=== PATIENT | female | born 1960 | race Caucasian/White ===

== ENCOUNTER 2016-06-21 10:11 | Emergency (ER) | payer BC ==
[2016-06-21] MEDS ORDERED: Adacel Vial IM ONE ×2 (10:35→10:36)
--- NOTE | 2016-06-21 10:42 | ERPHSYRPT ---
- History of Present Illness Time Seen by Provider: 06/21/16 10:20 Source: patient Exam Limitations: no limitations Patient Subjective Stated Complaint: lt knee laceration Triage Nursing Assessment: fell carrying wood this morning--approx 3.5 cm u- shaped laceration to dorsal lt knee. bleeding controlled. bruising noted to dorsal lt knee. no other injury. pedal pulse present Occurred: just prior to arrival Reason for Fall: tripped Injuries/Pain Location: lower extremity (left knee) Loss of Consciousness: no loss of consciousness Quality: aching Allergies/Adverse Reactions: ibuprofen Allergy (Severe, Verified 06/21/16 10:27) hives NSAIDS (Non-Steroidal Anti-Inflamma Allergy (Intermediate, Verified 06/21/16 10: 27) Difficulty Breathing acetaminophen [From Darvocet-N 100] Allergy (Mild, Unverified 06/21/16 10:27) Hives meperidine HCl [From Demerol] Allergy (Mild, Verified 06/21/16 10:27) Itching morphine Allergy (Mild, Verified 06/21/16 10:27) Itching propoxyphene napsylate [From Darvocet-N 100] Allergy (Mild, Verified 06/21/16 10 :27) Hives Sulfa (Sulfonamide Antibiotics) [Sulfa(Sulfonamide Antibiotics)] Adverse Reaction (Mild, Verified 06/21/16 10:27) Stomach Pain Home Medications: Hydrocodone/APAP 10/325 mg [[employer] 10/325 MG Tablet] 1 tab PO QID PRN PRN 04/02/15 [History] Citalopram Hydrobromide 20 mg* [ceLEXa 20 MG] 10 mg PO DAILY 06/21/16 [ History] Hx Tetanus, Diphtheria Vaccination/Date Given: No Hx Influenza Vaccination/Date Given: Yes Hx Pneumococcal Vaccination/Date Given: Yes Immunizations Up to Date: No - Review of Systems Constitutional: No Symptoms Eyes: No Symptoms Ears, Nose, & Throat: No Symptoms Respiratory: No Symptoms Cardiac: No Symptoms Abdominal/Gastrointestinal: No Symptoms Musculoskeletal: Fall, Joint Pain (left knee) Neurological: No Symptoms Psychological: No Symptoms Endocrine: No Symptoms Hematologic/Lymphatic: No Symptoms Immunological/Allergic: No Symptoms - Past Medical History Pertinent Past Medical History: Yes Neurological History: Migraines ENT History: No Pertinent History Cardiac History: No Pertinent History Respiratory History: No Pertinent History Endocrine Medical History: No Pertinent History Musculoskeletal History: Arthritis, Degenerative Disk Disease, Osteoarthritis, Other GI Medical History: No Pertinent History History: Other Psycho-Social History: Anxiety Female Reproductive Disorders: Abnormal Uterine Bleeding Other Medical History: Kidney stone disease. UTI. kidney stent - Past Surgical History Past Surgical History: Yes Neuro Surgical History: No Pertinent History Cardiac: No Pertinent History Respiratory: No Pertinent History Gastrointestinal: Appendectomy Genitourinary: No Pertinent History Musculoskeletal: Orthopedic Surgery Female Surgical History: Hysterectomy Other Surgical History: back surgery - vein removal-ureter stents placed - Social History Smoking Status: Never smoker How long have you smoked: 22 years Exposure to second hand smoke: No Drug Use: none Patient Lives Alone: No - Female History Hx Now: No - Nursing Vital Signs Nursing Vital Signs: Initial Vital Signs Temperature 98.3 F Temperature Source Oral Pulse Rate 83 Respiratory Rate 18 Blood Pressure 129/73 Pain Intensity 8 - Physical Exam General Appearance: moderate distress Head Injury: no evidence of injury Eye Exam: PERRL/EOMI, eyes nml inspection ENT Exam: airway nml Neck Exam: supple, trachea midline, full range of motion Respiratory/Chest Exam: normal breath sounds Cardiovascular Exam: normal heart sounds, regular rate/rhythm Gastrointestinal Exam: soft, normal bowel sounds Back Exam: normal inspection, normal range of motion Extremity Exam: normal range of motion, capillary refill <3 sec, pelvis stable, lacerations (5 cm elliptical to left knee) Neurologic Exam: alert, oriented x 3, cooperative, normal mood/affect, nml cerebellar function Skin Exam: normal color, warm, dry, laceration SpO2 Interpretation: normal SpO2: 99 Oxygen Delivery: Room Air Procedures - Laceration/Wound Repair Knee Wound Location: Left, upper leg Wound Length (cm): 5 Wound's Depth, Shape: superficial, contused tissue Wound Explored: clean Hibiclens Prep: Yes Anesthesia: local, 2% Lidocaine Volume Anesthetic (ccs): 6 Wound Debrided: minimal Wound Repaired With: [place] Number of Sutures: 11 Layer Closure?: No Sterile Dressing Applied?: Yes Splint Applied?: Yes Type of Splint Applied: Knee immobilizer Sling Applied?: No - Radiology Exams Knee X-ray Interpretation: Interpreted by me, Negative Ordered Tests: Active Orders 24 hr Category Date Time Status Splint STAT Care 06/21/16 11:16 Active Wound Care STAT Care 06/21/16 11:15 Active KNEE (3 VIEWS) Stat Exams 06/21/16 10:35 Taken Medication Summary Discontinued Medications Generic Name Dose Route Start Last Admin Trade Name Zina PRN Reason Stop Dose Admin Bacitracin 0.9 gm 06/21/16 11:15 06/21/16 11:19 Baciguent Packet TP 06/21/16 11:16 0.9 gm STAT ONE Administration Diphtheria/Tetanus/Acell Pertussis 0.5 ml 06/21/16 10:35 06/21/16 10:37 Adacel Vial IM 06/21/16 10:36 0.5 ml .ONCE ONE Administration Diphtheria/Tetanus/Acell Pertussis Confirm 06/21/16 10:36 Adacel Vial Administered 06/21/16 10:37 Dose 0.5 ml IM .STK-MED ONE Lidocaine HCl 8 ml 06/21/16 11:15 06/21/16 11:19 Xylocaine 2% Hcl 20 Ml Mdv IJ 06/21/16 11:16 8 ml STAT ONE Administration - Progress Progress: improved Counseled pt/family regarding: need for follow-up ([place] removal 12 days) - Departure Time of Disposition: 11:15 Departure Disposition: Home Clinical Impression: Contusion of left knee, initial encounter Qualifiers: Encounter type: initial encounter Qualified Code(s): S80.02XA - Contusion of left knee, initial encounter Laceration of knee Qualifiers: Encounter type: initial encounter Laterality: left Qualified Code(s): S81.012A - Laceration without foreign body, left knee, initial encounter Condition: Stable Critical Care Time: No Referrals: GIANNA BORJAS [Primary Care Provider] - Instructions: Care for a Laceration After Repair, Laceration Repair -- [place] Additional Instructions: [place] removal by your doctor 12 days
[2016-06-21] MEDS ORDERED: BACIGUENT PACKET TP ONE (11:15)
[2016-06-21] MEDS ORDERED: XYLOCAINE 2% HCL 20 ML MDV IJ ONE (11:15)
[2016-06-21] MEDS ORDERED: BACIGUENT PACKET ONE (11:18)
[2016-06-21] MEDS ORDERED: XYLOCAINE 2% HCL 20 ML MDV ONE (11:18)
[2016-06-21 11:36] VITALS: BP 112/58; PULSE 74; O2SAT 97
--- NOTE | 2016-06-21 20:33 | XRAY ---
Indication: Pain and laceration following fall. Comparison: None 3 views of the left knee demonstrates small anterior laceration. No other bony, articular, or soft tissue abnormalities.
== END 2016-06-21 11:30 | disposition home or self-care (01) ==
LOC: ED 10:11
PROC: 0HQLXZZ Repair Left Lower Leg Skin, External Approach (ICD-10-PCS; principal; 2016-06-21)
DX: S80.02XA Contusion of left knee, initial encounter (principal); S81.012A Laceration without foreign body, left knee, initial encounter; W01.0XXA Fall on same level from slipping, tripping and stumbling without subsequent striking against object, initial encounter; Z23 Encounter for immunization; A35 Other tetanus
CPT/HCPCS: 12002; 73562; 90715; 99283; L1830

== ENCOUNTER 2016-10-10 15:20 | Emergency (ER) | payer BC ==
[2016-10-10] MEDS ORDERED: BENADRYL 50 MG/ML IV ONE (15:26)
[2016-10-10] MEDS ORDERED: Ativan 2 MG/1 ML VIAL IV ONE (15:26)
[2016-10-10] MEDS ORDERED: Sodium Chloride 0.9% 1000 ML 0 ML ONE (15:30)
[2016-10-10] MEDS ORDERED: BENADRYL 50 MG/ML ONE ×2 (15:30→15:32)
[2016-10-10] MEDS ORDERED: Ativan 2 MG/1 ML VIAL ONE ×2 (15:30→15:32)
[2016-10-10] MEDS ORDERED: Sodium Chloride 0.9% 1000 ML 1,000 ML IV SCH (15:30)
[2016-10-10] MEDS ORDERED: Sodium Chloride 0.9% 1000 ML 1,000 ML ONE (15:32)
--- NOTE | 2016-10-10 16:18 | ERPHSYRPT ---
- History of Present Illness Time Seen by Provider: 10/10/16 16:14 Source: patient, EMS Exam Limitations: no limitations Patient Subjective Stated Complaint: PT STATES SHE DRANK AN ENERGY DRINK AT WORK AND AN HOUR LATER BEGAN FEELING BAD AND ITCHING. Triage Nursing Assessment: PT PINK, WARM, DRY. PT SHAKING. PT AFEBRILE. Physician History: 56-year-old female came to the emergency room up that having the allergic reaction with energy drinks. She was having a severe muscle spasm and rash all over the body. She has never experienced this type of symptoms before. She relates this to the energy drink. Timing/Duration: today Associated Symptoms: malaise Allergies/Adverse Reactions: ibuprofen Allergy (Severe, Verified 10/10/16 15:26) hives NSAIDS (Non-Steroidal Anti-Inflamma Allergy (Intermediate, Verified 10/10/16 15: 26) Difficulty Breathing acetaminophen [From Darvocet-N 100] Allergy (Mild, Unverified 10/10/16 15:26) Hives meperidine HCl [From Demerol] Allergy (Mild, Verified 10/10/16 15:26) Itching morphine Allergy (Mild, Verified 10/10/16 15:26) Itching propoxyphene napsylate [From Darvocet-N 100] Allergy (Mild, Verified 10/10/16 15 :26) Hives Sulfa (Sulfonamide Antibiotics) [Sulfa(Sulfonamide Antibiotics)] Adverse Reaction (Mild, Verified 10/10/16 15:26) Stomach Pain Home Medications: Hydrocodone/APAP 10/325 mg [[place] 10/325 MG Tablet] 1 tab PO QID PRN PRN 04/02/15 [History] Hx Tetanus, Diphtheria Vaccination/Date Given: Yes (UP TO DATE) Hx Influenza Vaccination/Date Given: Yes Hx Pneumococcal Vaccination/Date Given: No Immunizations Up to Date: Yes - Review of Systems Constitutional: Malaise, No Fever, No Chills Eyes: No Symptoms Ears, Nose, & Throat: No Symptoms Respiratory: No Cough, No Dyspnea Cardiac: No Chest Pain, No Edema, No Syncope Abdominal/Gastrointestinal: No Abdominal Pain, No Nausea, No Vomiting, No Diarrhea Genitourinary Symptoms: No Dysuria Musculoskeletal: Myalgias, No Back Pain, No Neck Pain Skin: Rash Neurological: No Dizziness, No Focal Weakness, No Sensory Changes Psychological: No Symptoms Endocrine: No Symptoms All Other Systems: Reviewed and Negative - Past Medical History Pertinent Past Medical History: Yes Neurological History: Migraines ENT History: No Pertinent History Cardiac History: No Pertinent History Respiratory History: No Pertinent History Endocrine Medical History: No Pertinent History Musculoskeletal History: Arthritis, Degenerative Disk Disease, Osteoarthritis, Other GI Medical History: No Pertinent History History: Other Psycho-Social History: Anxiety Female Reproductive Disorders: Abnormal Uterine Bleeding Other Medical History: Kidney stone disease. UTI. kidney stent - Past Surgical History Past Surgical History: Yes Neuro Surgical History: No Pertinent History Cardiac: No Pertinent History Respiratory: No Pertinent History Gastrointestinal: Appendectomy Genitourinary: No Pertinent History Musculoskeletal: Orthopedic Surgery Female Surgical History: Hysterectomy Other Surgical History: back surgery - vein removal-ureter stents placed - Social History Smoking Status: Former smoker How long have you smoked: 22 years Exposure to second hand smoke: No Drug Use: none Patient Lives Alone: No - Female History Hx Now: No - Nursing Vital Signs Nursing Vital Signs: Initial Vital Signs Temperature 98.3 F Temperature Source Oral Pulse Rate 74 Respiratory Rate 18 Blood Pressure [Right Arm] 131/74 Pain Intensity 0 - Physical Exam General Appearance: no apparent distress, alert Eye Exam: PERRL/EOMI, eyes nml inspection Ears, Nose, Throat Exam: normal ENT inspection, TMs normal, pharynx normal, moist mucous membranes Neck Exam: normal inspection, non-tender, supple, full range of motion Respiratory Exam: normal breath sounds, lungs clear, No respiratory distress Cardiovascular Exam: regular rate/rhythm, normal heart sounds, normal peripheral pulses Gastrointestinal/Abdomen Exam: soft, normal bowel sounds, No tenderness, No mass Back Exam: normal inspection, normal range of motion, No CVA tenderness, No vertebral tenderness Extremity Exam: normal inspection, normal range of motion, pelvis stable Neurologic Exam: alert, oriented x 3, cooperative, normal mood/affect, nml cerebellar function, nml station & gait, sensation nml, No motor deficits Skin Exam: normal color, warm, dry, rash Lymphatic Exam: No adenopathy SpO2: 100 Oxygen Delivery: Room Air - Course Nursing assessment & vital signs reviewed: Yes Ordered Tests: Active Orders 24 hr Category Date Time Status Telehealth Director STAT Care 10/10/16 15:33 Active IV Insertion STAT Care 10/10/16 15:33 Active Medication Summary Generic Name Dose Route Start Last Admin Trade Name Zina PRN Reason Stop Dose Admin Sodium Chloride 1,000 mls @ 100 mls/hr 10/10/16 15:30 10/10/16 15:52 Sodium Chloride 0.9% 1000 Ml IV 11/09/16 15:29 100 mls/hr .Q10H NANCY Administration Discontinued Medications Generic Name Dose Route Start Last Admin Trade Name Zina PRN Reason Stop Dose Admin Diphenhydramine HCl 50 mg 10/10/16 15:26 10/10/16 15:52 Benadryl 50 Mg/Ml IV 10/10/16 15:27 50 mg STAT ONE Administration Diphenhydramine HCl Confirm 10/10/16 15:30 Benadryl 50 Mg/Ml Administered 10/10/16 15:31 Dose 50 mg .ROUTE .STK-MED ONE Diphenhydramine HCl Confirm 10/10/16 15:32 Benadryl 50 Mg/Ml Administered 10/10/16 15:33 Dose 50 mg .ROUTE .STK-MED ONE Lorazepam 2 mg 10/10/16 15:26 10/10/16 15:52 Ativan 2 Mg/1 Ml Vial IV 10/10/16 15:27 2 mg STAT ONE Administration Lorazepam Confirm 10/10/16 15:30 Ativan 2 Mg/1 Ml Vial Administered 10/10/16 15:31 Dose 2 mg .ROUTE .STK-MED ONE Lorazepam Confirm 10/10/16 15:32 Ativan 2 Mg/1 Ml Vial Administered 10/10/16 15:33 Dose 2 mg .ROUTE .STK-MED ONE - Progress Progress: improved Counseled pt/family regarding: diagnosis, need for follow-up - Departure Time of Disposition: 16:16 Departure Disposition: Home Clinical Impression: Allergic reaction Qualifiers: Encounter type: initial encounter Qualified Code(s): T78.40XA - Allergy, unspecified, initial encounter Condition: Stable Critical Care Time: Yes Critical Care Time(excluding separately billable procedures): 30-74 minutes Referrals: GIANNA BORJAS [Primary Care Provider] - Instructions: Adverse Drug Reaction -- Allergic Additional Instructions: Please do not drink energy drinks anymore in future. Follow-up with your primary care physician in next 1-2 days.
[2016-10-10 18:48] VITALS: BP 112/77; PULSE 83; O2SAT 100
== END 2016-10-10 18:45 | disposition home or self-care (01) ==
LOC: ED 15:20
DX: T78.40XA Allergy, unspecified, initial encounter (principal); R53.81 Other malaise; M79.1 Myalgia
CPT/HCPCS: 36000; 93041; 96360; 96361; 96374; 96375; 99284; J1200; J2060

== ENCOUNTER 2016-11-23 03:54 | Emergency (ER) | payer BC ==
[2016-11-23] MEDS ORDERED: BENADRYL 50 MG/ML IM ONE (04:14)
[2016-11-23] MEDS ORDERED: solu-MEDROL 125 MG IM ONE (04:14)
[2016-11-23] MEDS ORDERED: solu-MEDROL 125 MG ONE (04:21)
[2016-11-23] MEDS ORDERED: BENADRYL 50 MG/ML ONE (04:21)
--- NOTE | 2016-11-23 04:38 | ERPHSYRPT ---
- History of Present Illness Time Seen by Provider: 11/23/16 04:05 Source: patient Exam Limitations: clinical condition Patient Subjective Stated Complaint: Pt states she woke up sick to her stomach. She vomited x1 and has been itching ever since. She denies any new foods, lotions, medications, detergents, etc. Triage Nursing Assessment: Pt alert and oriented x3. skin red warm and dry. afebrile. no hives noted. arms are red and scratched from patient scratching Physician History: PATIENT WITH HISTORY OF NARCOTIC DEPENDENCE AWAKENED FROM SLEEP WITH COMPLAINS OF GENERALIZED ITCHING SINCE 3AM THIS MORNING. DENIES DIFFICULTY BREATHING OR SWALLOWING. HAS UNKNOWN EXPOSURE. Timing/Duration: today Severity: moderate Associated Symptoms: denies symptoms Allergies/Adverse Reactions: ibuprofen Allergy (Severe, Verified 11/23/16 04:05) hives NSAIDS (Non-Steroidal Anti-Inflamma Allergy (Intermediate, Verified 11/23/16 04: 05) Difficulty Breathing acetaminophen [From Darvocet-N 100] Allergy (Mild, Verified 11/23/16 04:05) Hives meperidine HCl [From Demerol] Allergy (Mild, Verified 11/23/16 04:05) Itching morphine Allergy (Mild, Verified 11/23/16 04:05) Itching propoxyphene napsylate [From Darvocet-N 100] Allergy (Mild, Verified 11/23/16 04 :05) Hives Sulfa (Sulfonamide Antibiotics) [Sulfa(Sulfonamide Antibiotics)] Adverse Reaction (Mild, Verified 11/23/16 04:05) Stomach Pain Home Medications: Hydrocodone/APAP 10/325 mg [[place] 10/325 MG Tablet] 1 tab PO QID PRN PRN 04/02/15 [History] Hx Tetanus, Diphtheria Vaccination/Date Given: Yes (UP TO DATE) Hx Influenza Vaccination/Date Given: Yes Hx Pneumococcal Vaccination/Date Given: No - Review of Systems Constitutional: No Fever, No Chills Eyes: No Symptoms Ears, Nose, & Throat: No Symptoms, Throat Swelling Respiratory: No Cough, No Dyspnea Cardiac: No Symptoms, No Chest Pain, No Edema, No Syncope Abdominal/Gastrointestinal: No Symptoms, No Abdominal Pain, No Nausea, No Vomiting, No Diarrhea Genitourinary Symptoms: No Dysuria Musculoskeletal: No Symptoms, No Back Pain, No Neck Pain Skin: Pruritis, No Rash Neurological: No Dizziness, No Focal Weakness, No Sensory Changes Psychological: No Symptoms Endocrine: No Symptoms All Other Systems: Reviewed and Negative - Past Medical History Pertinent Past Medical History: Yes Neurological History: Migraines ENT History: No Pertinent History Cardiac History: No Pertinent History Respiratory History: No Pertinent History Endocrine Medical History: No Pertinent History Musculoskeletal History: Arthritis, Degenerative Disk Disease, Osteoarthritis, Other GI Medical History: No Pertinent History History: Other Psycho-Social History: Anxiety Female Reproductive Disorders: Abnormal Uterine Bleeding Other Medical History: Kidney stone disease. UTI. kidney stent - Past Surgical History Past Surgical History: Yes Neuro Surgical History: No Pertinent History Cardiac: No Pertinent History Respiratory: No Pertinent History Gastrointestinal: Appendectomy Genitourinary: No Pertinent History Musculoskeletal: Orthopedic Surgery Female Surgical History: Hysterectomy Other Surgical History: back surgery - vein removal-ureter stents placed - Social History Smoking Status: Former smoker How long have you smoked: 22 years Exposure to second hand smoke: No Drug Use: none Patient Lives Alone: No - Female History Hx Now: No - Nursing Vital Signs Nursing Vital Signs: Initial Vital Signs Temperature 97.7 F Temperature Source Oral Pulse Rate 85 Respiratory Rate 24 Blood Pressure [Right Arm] 136/99 Pain Intensity 8 - Physical Exam General Appearance: no apparent distress, alert Eye Exam: PERRL/EOMI, eyes nml inspection Ears, Nose, Throat Exam: normal ENT inspection, TMs normal, pharynx normal, moist mucous membranes Neck Exam: normal inspection, non-tender, supple, full range of motion Respiratory Exam: normal breath sounds, lungs clear, No respiratory distress Cardiovascular Exam: regular rate/rhythm, normal heart sounds, normal peripheral pulses Gastrointestinal/Abdomen Exam: soft, normal bowel sounds, No tenderness, No mass Back Exam: normal inspection, normal range of motion, No CVA tenderness, No vertebral tenderness Extremity Exam: normal inspection, normal range of motion, pelvis stable Neurologic Exam: alert, oriented x 3, cooperative, normal mood/affect, nml cerebellar function, nml station & gait, sensation nml, No motor deficits Skin Exam: normal color, warm, dry, other (THERE ARE NO HIVES OVER SKIN), No rash Lymphatic Exam: No adenopathy SpO2 Interpretation: normal SpO2: 99 Oxygen Delivery: Room Air Ordered Tests: Medication Summary Discontinued Medications Generic Name Dose Route Start Last Admin Trade Name Freq PRN Reason Stop Dose Admin Diphenhydramine HCl 50 mg 11/23/16 04:14 11/23/16 04:26 Benadryl 50 Mg/Ml IM 11/23/16 04:15 50 mg STAT ONE Administration Diphenhydramine HCl Confirm 11/23/16 04:21 Benadryl 50 Mg/Ml Administered 11/23/16 04:22 Dose 50 mg .ROUTE .STK-MED ONE Methylprednisolone Sodium Succinate 125 mg 11/23/16 04:14 11/23/16 04:26 Solu-Medrol 125 Mg IM 11/23/16 04:15 125 mg STAT ONE Administration Methylprednisolone Sodium Succinate Confirm 11/23/16 04:21 Solu-Medrol 125 Mg Administered 11/23/16 04:22 Dose 125 mg .ROUTE .STK-MED ONE - Progress Progress Note: 11/23/16 04:37 PATIENT ADMINISTERED BENADRYL 50MG IM, SOLUMEDROL 125MG IM Counseled pt/family regarding: lab results, diagnosis - Departure Time of Disposition: 05:00 Departure Disposition: Home Clinical Impression: ALLERGIC REACTION Condition: Stable Critical Care Time: No Additional Instructions: TAKE OVER THE COUNTER BENADRYL 50MG EVERY 4 HOURS FOR ITCHING NEEDED. PREDNISONE 40MG DAILY FOR 5 DAYS. CONSULT YOUR FAMILY PHYSICIAN FOR EVALUATION AND REFERRAL FOR ALLERGY TESTING. Prescriptions: Prednisone 20 mg [Deltasone 20 mg] 2 tab PO DAILY #10 tablet
[2016-11-23 05:11] VITALS: BP 103/70; PULSE 65; O2SAT 100
== END 2016-11-23 05:10 | disposition home or self-care (01) ==
LOC: ED 03:54
DX: T78.40XA Allergy, unspecified, initial encounter (principal)
CPT/HCPCS: 96372; 99284; J1200; J2930

== ENCOUNTER 2023-07-22 14:25 | Emergency (ER) | payer MEDICARE ==
--- NOTE | 2023-07-22 14:37 | ERPHSYRPT ---
- History of Present Illness Time Seen by Provider: 07/22/23 14:36 Source: patient, family Exam Limitations: no limitations Physician History: This is a 63-year-old white female patient who has moved back to this area and has an appointment see Dr. Thomas next week. Patient is staying at her son's home and tripped over his coffee table 2 days ago and hit the left tibia region and an area of a prior wound. Within a day she noticed redness and warmth to the area and the redness was tracking medially and proximally. Patient thought she was a little feverish today so she came into the hospital. However upon entrance into the hospital emergency department, she stated that she had to leave by 3:30 PM patient states that this wound on her left lower leg that is chronically there measuring 2.5 cm x 1.7 cm occasionally does release small pieces of wood. She had hit the site with wood a few years back. Patient is a daily smoker of cigarettes. She has a history of coronary artery disease and arrhythmias. She also has a history of anxiety. Method of Injury: direct blow Occurred: days ago (2) Quality: aching (From a coffee table 2 days ago) Severity of Pain-Max: mild Severity of Pain-Current: mild Allergies/Adverse Reactions: ibuprofen Allergy (Severe, Verified 07/22/23 14:44) hives NSAIDS (Non-Steroidal Anti-Inflamma Allergy (Intermediate, Verified 07/22/23 14:44) Difficulty Breathing acetaminophen [From Darvocet-N 100] Allergy (Mild, Verified 07/22/23 14:44) Hives meperidine HCl [From Demerol] Allergy (Mild, Verified 07/22/23 14:44) Itching morphine Allergy (Mild, Verified 07/22/23 14:44) Itching propoxyphene napsylate [From Darvocet-N 100] Allergy (Mild, Verified 07/22/23 14:44) Hives Sulfa (Sulfonamide Antibiotics) [Sulfa(Sulfonamide Antibiotics)] Adverse Reaction (Mild, Verified 07/22/23 14:44) Stomach Pain Home Medications: Hydrocodone/APAP 10/325 mg [[place] 10/325 MG Tablet] 1 tab PO QID PRN PRN 04/02/15 [History] Venlafaxine HCl ER 75 mg [Effexor XR 75 MG] 150 mg PO QAM 07/22/23 [History] Hx Tetanus, Diphtheria Vaccination/Date Given: Yes (UP TO DATE) Hx Influenza Vaccination/Date Given: Yes Hx Pneumococcal Vaccination/Date Given: No Travel Risk - International Travel Have you traveled outside of the country in past 3 weeks: No - Coronavirus Screening Are you exhibiting any of the following symptoms?: No Close contact with a COVID-19 positive Pt in past 14-21 Days: No - Review of Systems Constitutional: No Symptoms Eyes: No Symptoms Ears, Nose, & Throat: No Symptoms Respiratory: No Symptoms Cardiac: No Symptoms Abdominal/Gastrointestinal: No Symptoms Genitourinary Symptoms: No Symptoms Musculoskeletal: No Symptoms Skin: Cellulitis (Left lower extremity) Neurological: No Symptoms Psychological: No Symptoms Endocrine: No Symptoms Hematologic/Lymphatic: No Symptoms - Past Medical History Pertinent Past Medical History: Yes Neurological History: No Pertinent History ENT History: No Pertinent History Cardiac History: Arrhythmia, Myocardial Infarction ([place]), Other Respiratory History: No Pertinent History Endocrine Medical History: Other Musculoskeletal History: Arthritis, Degenerative Disk Disease, Osteoarthritis, Other GI Medical History: No Pertinent History History: Other Psycho-Social History: Anxiety Female Reproductive Disorders: Abnormal Uterine Bleeding Other Medical History: HX OF KIDNEY STONES, PACEMAKER PLACEMENT 2016 - Past Surgical History Past Surgical History: Yes Neuro Surgical History: No Pertinent History Cardiac: No Pertinent History Respiratory: No Pertinent History Gastrointestinal: Appendectomy Genitourinary: No Pertinent History Musculoskeletal: Orthopedic Surgery Female Surgical History: Hysterectomy Other Surgical History: back surgery - vein removal-ureter stents placed - Social History Smoking Status: Former smoker How long have you smoked: 22 years Exposure to second hand smoke: No Drug Use: none Patient Lives Alone: No - Nursing Vital Signs Nursing Vital Signs: Initial Vital Signs Temperature 98.5 F 07/22/23 14:32 Pulse Rate 82 07/22/23 14:32 Respiratory Rate 16 07/22/23 14:32 O2 Sat by Pulse Oximetry 99 07/22/23 14:32 Pain Scale Pain Intensity 8 - Physical Exam General Appearance: no apparent distress, alert, anxiety, obese Eyes, Ears, Nose, Throat Exam: normal ENT inspection, moist mucous membranes Neck Exam: normal inspection, non-tender, supple, full range of motion Cardiovascular/Respiratory Exam: chest non-tender, no respiratory distress Gastrointestinal/Abdominal Exam: non-tender Back Exam: normal inspection, normal range of motion, No CVA tenderness, No vertebral tenderness Hips Exam: bilateral: non-tender, normal inspection, normal range of motion, no evidence of injury Legs Exam: right leg: non-tender, normal inspection, normal range of motion, no evidence of injury, left leg: soft tissue tenderness (With associated cellulitis and proximal streaking present), bilateral leg: other (Chronic lymphedema) Knees Exam: bilateral knee: non-tender, normal inspection, normal range of motion, no evidence of injury Ankle Exam: bilateral ankle: non-tender, normal inspection, normal range of motion, no evidence of injury Foot Exam: bilateral foot: non-tender, normal inspection, normal range of motion, no evidence of injury Neuro/Tendon Exam: normal sensation, normal motor functions, normal tendon functions, responds to pain, no evidence tendon injury Mental Status Exam: alert, oriented x 3, cooperative SpO2 Interpretation: normal O2 Delivery: Room Air - Course Nursing assessment & vital signs reviewed: Yes Ordered Tests: Medication Summary Discontinued Medications Generic Name Dose Route Start Last Admin Trade Name Rovertoq PRN Reason Stop Dose Admin Levofloxacin 500 mg 07/22/23 15:02 Levofloxacin 500 Mg Tablet PO 07/22/23 15:03 STAT ONE - Progress Progress: unchanged Progress Note: 07/22/23 15:08 This patient's medical issue is 1 of low complexity. The level complex in the workup performed is based on review of the patient's past medical history, review of patient's medication list, the review the patient's drug allergy list, history present illness and physical findings on examination. Patient is refu sing medical workup. I discussed with her the need to place an intravenous line, obtain blood cultures, perform a CBC, CMP, lactic acid level. In addition, my preference was to provide her with intravenous IV antibiotics and possible admission into the hospital. Patient is refusing this. Patient is leaving against medical vice. I did speak with her about providing her with oral Levaquin which she agrees to have. She also agrees to sign the AGAINST MEDICAL ADVICE form. She also states that if her symptoms worsen she will return to the emergency department. I also sent a prescription for 1 week more of Levaquin antibiotics. I discussed with her the risk of leaving AGAINST MEDICAL ADVICE and the benefits of staying for further workup and additional treatment. She is still refusing Counseled pt/family regarding: diagnosis, need for follow-up Medical Desision Making - Diagnostic Testing Diagnostic test were ordered, analyzed, and reviewed by me: No - Risk of complications The pt has a mod risk of morbidity or mortality based on: Need for prescription drug management - Departure Departure Disposition: AMA Clinical Impression: Cellulitis Condition: Stable Critical Care Time: No Referrals: HECTOR THOMAS DO [Primary Care Provider] - Follow up/PCP as directed Additional Instructions: Keep the left lower extremity wound clean and dry. Take your antibiotics and other medication as prescribed. Return to the emergency department if symptoms worsen. Prescriptions: Levofloxacin [Levaquin 500 MG Tablet] 500 mg PO DAILY #7 tablet
[2023-07-22 14:42] VITALS: PULSE 82; RESP 16; TEMP 98.5; O2SAT 99
[2023-07-22] MEDS ORDERED: Levofloxacin 500 MG Tablet ONE (15:04)
[2023-07-22] MEDS: Levofloxacin 500 MG Tablet PO ONE (15:05)
== END 2023-07-22 15:15 | disposition left against medical advice (07) ==
LOC: ED 14:25
DX: L03.116 Cellulitis of left lower limb (principal); M79.662 Pain in left lower leg; Z79.899 Other long term (current) drug therapy; Z72.0 Tobacco use
CPT/HCPCS: 99281; A9270-GY

== ENCOUNTER 2023-08-28 10:54 | Emergency (ER) | payer MEDICARE ==
[2023-08-28 11:05] VITALS: RESP 20; TEMP 97.2; O2SAT 97
--- NOTE | 2023-08-28 11:24 | ERPHSYRPT ---
- History of Present Illness Time Seen by Provider: 08/28/23 11:19 Source: patient, family Exam Limitations: no limitations Patient Subjective Stated Complaint: PT states "I have been tired and my left leg hurts and I have a horrible pain in my left leg." Triage Nursing Assessment: PT presented alert and oriented X 3, ski wpd. PT ambulates with a limp. PT left lower leg is extremely red and swollen tender to touch. pt is tender in her left groin. Physician History: PT states "I have been tired and my left leg hurts and I have a horrible pain in my left leg." PT left lower leg is extremely red and swollen tender to touch. pt is tender in her left groin. Method of Injury: other (old injury) Occurred: last week Quality: burning, other (pain in left inguinal area) Lower Extremities Pain: leg: left Modifying Factors: Improves With: nothing Associated Symptoms: none Body Map: 1 - redness Allergies/Adverse Reactions: ibuprofen Allergy (Severe, Verified 07/22/23 14:44) hives NSAIDS (Non-Steroidal Anti-Inflamma Allergy (Intermediate, Verified 07/22/23 14:44) Difficulty Breathing acetaminophen [From Darvocet-N 100] Allergy (Mild, Verified 07/22/23 14:44) Hives meperidine HCl [From Demerol] Allergy (Mild, Verified 07/22/23 14:44) Itching morphine Allergy (Mild, Verified 07/22/23 14:44) Itching propoxyphene napsylate [From Darvocet-N 100] Allergy (Mild, Verified 07/22/23 14:44) Hives Sulfa (Sulfonamide Antibiotics) [Sulfa(Sulfonamide Antibiotics)] Adverse Reaction (Mild, Verified 07/22/23 14:44) Stomach Pain Home Medications: Hydrocodone/APAP 10/325 mg [[place] 10/325 MG Tablet] 1 tab PO QID PRN PRN 04/02/15 [History] Venlafaxine HCl ER 75 mg [Effexor XR 75 MG] 150 mg PO QAM 07/22/23 [History] Hx Tetanus, Diphtheria Vaccination/Date Given: Yes (UP TO DATE) Hx Influenza Vaccination/Date Given: Yes Hx Pneumococcal Vaccination/Date Given: No Immunizations Up to Date: No Travel Risk - International Travel Have you traveled outside of the country in past 3 weeks: No - Coronavirus Screening Are you exhibiting any of the following symptoms?: No Close contact with a COVID-19 positive Pt in past 14-21 Days: No - Vaccine Status Have you recieved a Covid-19 vaccination: No 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 - Vaccination Dates Dates if Unknown: unknown - Review of Systems Constitutional: No Fever, No Chills Eyes: No Symptoms Ears, Nose, & Throat: No Symptoms Respiratory: No Cough, No Dyspnea Cardiac: No Chest Pain, No Edema, No Syncope Abdominal/Gastrointestinal: No Abdominal Pain, No Nausea, No Vomiting, No Diarrhea Genitourinary Symptoms: No Dysuria Musculoskeletal: No Back Pain, No Neck Pain Skin: Cellulitis (left leg), No Rash Neurological: No Dizziness, No Focal Weakness, No Sensory Changes Psychological: No Symptoms Endocrine: No Symptoms Hematologic/Lymphatic: Other (tender lymphnode in groin area) All Other Systems: Reviewed and Negative - Past Medical History Pertinent Past Medical History: Yes Neurological History: No Pertinent History ENT History: No Pertinent History Cardiac History: Arrhythmia, Myocardial Infarction ([place]), Other Respiratory History: No Pertinent History Endocrine Medical History: Other Musculoskeletal History: Arthritis, Degenerative Disk Disease, Osteoarthritis, Other GI Medical History: No Pertinent History History: Other Psycho-Social History: Anxiety Female Reproductive Disorders: Abnormal Uterine Bleeding Other Medical History: HX OF KIDNEY STONES, PACEMAKER PLACEMENT 2016 - Past Surgical History Past Surgical History: Yes Neuro Surgical History: No Pertinent History Cardiac: No Pertinent History Respiratory: No Pertinent History Gastrointestinal: Appendectomy Genitourinary: No Pertinent History Musculoskeletal: Orthopedic Surgery Female Surgical History: Hysterectomy Other Surgical History: back surgery - vein removal-ureter stents placed - Social History Smoking Status: Former smoker How long have you smoked: 22 years Exposure to second hand smoke: No Drug Use: none Patient Lives Alone: No - Nursing Vital Signs Nursing Vital Signs: Initial Vital Signs Temperature 97.2 F 08/28/23 10:59 Pulse Rate 100 H 08/28/23 10:59 Respiratory Rate 20 08/28/23 10:59 Blood Pressure 109/81 08/28/23 10:59 O2 Sat by Pulse Oximetry 97 08/28/23 10:59 Pain Scale Pain Intensity 4 - Physical Exam General Appearance: alert Eyes, Ears, Nose, Throat Exam: moist mucous membranes Neck Exam: non-tender, supple Cardiovascular/Respiratory Exam: chest non-tender, normal breath sounds, regular rate/rhythm, no respiratory distress Gastrointestinal/Abdominal Exam: non-tender, guarding Back Exam: normal inspection, No vertebral tenderness Hips Exam: bilateral: non-tender Legs Exam: left leg: soft tissue tenderness, swelling Knees Exam: bilateral knee: non-tender Ankle Exam: bilateral ankle: non-tender Foot Exam: bilateral foot: non-tender Neuro/Tendon Exam: normal sensation, normal motor functions, normal tendon functions Mental Status Exam: alert, oriented x 3, cooperative Skin Exam: normal color, warm, dry SpO2 Interpretation: normal SpO2: 97 O2 Delivery: Room Air Comments: left inguinal area tenderness - Course Nursing assessment & vital signs reviewed: Yes Ordered Tests: Active Orders 24 hr Category Date Time Status CBC W DIFF Stat Lab 08/28/23 11:29 Completed CMP Stat Lab 08/28/23 11:29 Received Medication Summary Discontinued Medications Generic Name Dose Route Start Last Admin Trade Name Rovertoq PRN Reason Stop Dose Admin Ceftriaxone Sodium 1,000 mg 08/28/23 11:16 08/28/23 11:35 Ceftriaxone Sodium 1000 Mg Inj Vial IM 08/28/23 11:17 1,000 mg STAT ONE Administration Ceftriaxone Sodium Confirm 08/28/23 11:34 Ceftriaxone Sodium 1000 Mg Inj Vial Administered 08/28/23 11:35 Dose 1,000 mg .ROUTE .STK-MED ONE Lidocaine HCl Confirm 08/28/23 11:34 Lidocaine Hcl 1% 20 Ml Mdv 20 Ml Ml Administered 08/28/23 11:35 Dose 1 ml .ROUTE .STK-MED ONE Mupirocin 22 gm 08/28/23 11:16 08/28/23 11:42 Mupirocin 22 Gm Tube Ointment TP 08/28/23 11:17 22 gm STAT ONE Administration Lab/Rad Data: Laboratory Result Diagrams 08/28/23 11:29 Laboratory Results 08/28/23 Range/Units 11:29 WBC 9.1 (4.0-10.5) x10^3/uL RBC 3.67 L (4.1-5.4) x10^6/uL Hgb 12.0 (12.0-16.0) g/dL Hct 37.3 (35-47) % MCV 101.6 H (78-100) fL MCH 32.7 H (26-32) pg MCHC 32.2 (32-36) g/dL RDW 13.6 (11.5-14.0) % Plt Count 156 (150-450) x10^3/uL MPV 9.9 (7.5-11.0) fL Gran % 66.9 H (36.0-66.0) % Immature Gran % (Auto) 0.2 (0.00-0.4) % Nucleat RBC Rel Count 0.0 (0.00-0.1) % Eos # (Auto) 0.07 (0-0.5) x10^3/uL Immature Gran # (Auto) 0.02 (0.00-0.03) x10^3u/L Absolute Lymphs (auto) 1.76 (1.0-4.6) x10^3/uL Absolute Monos (auto) 1.12 (0.0-1.3) x10^3/uL Absolute Nucleated RBC 0.00 (0.00-0.01) x10^3u/L Lymphocytes % 19.4 L (24.0-44.0) % Monocytes % 12.3 H (0.0-12.0) % Eosinophils % 0.8 (0.00-5.0) % Basophils % 0.4 (0.0-0.4) % Absolute Granulocytes 6.06 (1.4-6.9) x10^3/uL Basophils # 0.04 (0-0.4) x10^3/uL - Progress Progress: improved, pain not gone completely Counseled pt/family regarding: lab results, diagnosis, need for follow-up - Departure Departure Disposition: Home Clinical Impression: Left leg cellulitis Condition: Stable Critical Care Time: No Referrals: HECTOR THOMAS DO [Primary Care Provider] - Follow Up with PCP/3 days Instructions: Cellulitis (Skin Infection), Adult (DC) Additional Instructions: Apply bactroban cream twice a day on affectec area. Discharge/Care Plan DC LITTLEJOHN was seen on 08/28/23 in the Emergency Room. The patient was counseled regarding Diagnosis,Lab results, Imaging studies, need for follow up and when to return to the Emergency Room. Prescriptions given: Discharge Note I have spoken with the patient and/or caregivers. I have explained the patient's condition, diagnosis and treatment plan based on the information available to me at this time. I have answered the patient's and/or caregiver's questions and addressed any concerns. The patient and/or caregivers have as good understanding of the patient's diagnosis, condition and treatment plan as can be expected at this point. The vital signs have been stable. The patient's condition is stable and appropriate for discharge from the emergency department. The patient will pursue further outpatient evaluation with the primary care physician or other designated or consulting physician as outlined in the discharge instructions. The patient and/or caregivers are agreeable to this plan of care and follow-up instructions have been explained in detail. The patient and/or caregivers have received these instruction. The patient/and or caregivers are aware that any significant change in condition or worsening of symptoms should prompt an immediate return to this or the closest emergency department or call 911. DC LITTLEJOHN was seen on 08/28/23 n the Emergency Room. At that time you were treated for an emergent condition, during your visit Laboratory, Radiology and/or other procedures may have been ordered. It is very important that you follow-up with your Primary Care Physician HECTOR THOMAS, DO within the next 24-48 hours to review your Emergency Room visit and the final results of testing that was ordered. Some test results such as Urine Cultures, Blood Cultures, and other cultures if ordered will not be finalized for 24-48 hours. If you do not have a Primary Care Provider please call the medical records department at [phone] ext [phone] to obtain a copy of your results or you may sign into our patient portal to obtain these results by visiting us @ [email or web address] and completing the following steps: 1. Click on the Patient Portal link 2. Click the Patient Self Enrollment Link to complete the enrollment form and entering your 3. Once the enrollment form is completed you will receive an email with a t emporary ID and password at the email address you provided. 4. Next choose a user name and password. Your user name must be at least 4 characters long and your password must be at least 4 characters long. 5. Choose a security question from the list and provide your answer to the question. If you already have signed into the Health Portal you may access your Health Care Information 11/01 by the following steps: 1. Login to our website @ [email or web address] 2. Enter your original user name and password. FAQS The [facility] Health Portal is an online tool that contains your Lab Results, Radiology Reports, Visit History, Discharge Instructions and Health Summary Lab and Radiology Results will not be available for 72 hours on the portal. The Portal is a secure site, passwords are encryted and URLs are re-written so they cannot be copied and pasted. You and authorized family members are the only ones who can access your Portal. Also there is a timeout feature that protects your information if you leave the Portal page open. If you have technical difficulty please use the Contact Us link on the page this will allow you to submit any questions you have regarding the Portal or you may contact the Medical Record Department at [phone] ext [phone]. Prescriptions: clindamycin HCL [Clindamycin HCl] 300 mg PO QID #40 cap
[2023-08-28] MEDS ORDERED: Rocephin 1000 MG INJ ONE (11:34)
[2023-08-28] MEDS ORDERED: XYLOCAINE 1% HCL 20 ML MDV ONE (11:34)
[2023-08-28 11:35] LABS: Absolute Neutrophil Ct (ANC) 6.06 x10^3/uL (1.4-6.9); BASOPHIL % 0.4 % (0.0-0.4); Basophil (Absolute #) 0.04 x10^3/uL (0-0.4); Eosinophil % 0.8 % (0.00-5.0); Eosinophil (Absolute #) 0.07 x10^3/uL (0-0.5); Hematocrit 37.3 % (35-47); IMMATURE GRAN # 0.02 x10^3u/L (0.00-0.03); IMMATURE GRAN % 0.2 % (0.00-0.4); Lymphocyte (Absolute #) 1.76 x10^3/uL (1.0-4.6); Lymphocytes % 19.4 % (24.0-44.0); Mean Cell Volume 101.6 fL (78-100); Mean Corpuscular Hemoglobin 32.7 pg (26-32); Mean Corpuscular Hgb Concent. 32.2 g/dL (32-36); Mean Platelet Volume 9.9 fL (7.5-11.0); Monocyte (Absolute #) 1.12 x10^3/uL (0.0-1.3); Monocytes % 12.3 % (0.0-12.0); Neutrophil % 66.9 % (36.0-66.0); Platelet Count 156 x10^3/uL (150-450); Red Blood Count 3.67 x10^6/uL (4.1-5.4); Red Cell Distribution Width 13.6 % (11.5-14.0); White Blood Count 9.1 x10^3/uL (4.0-10.5)
[2023-08-28] MEDS: Rocephin 1000 MG INJ IM ONE (11:35)
[2023-08-28] MEDS: Bactroban OINTMENT TP ONE (11:42)
[2023-08-28 11:49] LABS: ALBUMIN 3.8 g/dL (3.5-5.0); ANION GAP 13.4 MEQ/L (5-15); BILIRUBIN,TOTAL 0.4 mg/dL (0.2-1.3); Calcium 8.8 mg/dL (8.4-10.2); Creatinine 1 0.56 mg/dL (0.52-1.04); EST GLOMERULAR FILTRATION RATE 101.2 ML/MIN; Potassium 3.9 mmol/L (3.5-5.1); Total Protein 7.6 g/dL (6.3-8.2)
[2023-08-28 11:52] VITALS: BP 105/64; PULSE 88
== END 2023-08-28 12:09 | disposition home or self-care (01) ==
LOC: ED 10:54
DX: L03.116 Cellulitis of left lower limb (principal); M79.605 Pain in left leg; R60.0 Localized edema
CPT/HCPCS: 36415; 80053; 85025; 96372; 99283; J0696; A9270-GY

== ENCOUNTER 2023-09-30 13:06 | Day surgery (SDC) | payer MEDICARE ==
[2013-03-09 13:47] VITALS: BP 108/68
[2023-09-30] MEDS ORDERED: Depo-Medrol 40 MG/ML IM ONE (13:07)
[2023-09-30] MEDS ORDERED: LIDOCAINE HCL 2% 100 MG/5 ML IJ ONE (13:07)
[2023-09-30] MEDS ORDERED: DIPRIVAN 200 MG/20 ML IV ONE (15:15)
[2023-09-30] MEDS ORDERED: Lactated Ringers 1,000 ML IV ONE (15:23)
--- NOTE | 2023-09-30 16:29 | XRAY ---
Indication: Bilateral L4-S1 MBB. Intraoperative fluoroscopy provided for 12 seconds. Single digital spot image submitted for interpretation demonstrates posterior needle tips projecting over the expected left and right L4-S1 nerve roots. Correlate with intraoperative findings/report.
--- NOTE | 2023-09-30 16:43 | XRAY ---
12 seconds of fluoroscopy was used in surgery for a bilateral L4-S1 MBB.
== END 2023-09-30 15:46 | disposition home or self-care (01) ==
LOC: SDC-PAIN 13:06
PROVIDERS: ATTEND Psychiatry & Neurology Pain Medicine
DX: M47.816 Spondylosis without myelopathy or radiculopathy, lumbar region (principal)
CPT/HCPCS: 64493; 64494; 72020; 77002; J1010; J2704; J1030

== ENCOUNTER 2023-11-24 12:00 | Day surgery (SDC) | payer MEDICARE ==
[2013-03-09 13:47] VITALS: BP 108/68
[2023-11-24] MEDS ORDERED: BUPIVACAINE 0.5% VIAL IJ ONE (12:01)
[2023-11-24] MEDS ORDERED: Depo-Medrol 40 MG/ML IM ONE (12:01)
[2023-11-24] MEDS ORDERED: DIPRIVAN 200 MG/20 ML IV ONE (13:51)
[2023-11-24] MEDS ORDERED: Lactated Ringers 1,000 ML IV ONE (14:29)
--- NOTE | 2023-11-24 15:25 | XRAY ---
Indication: Bilateral L4-S1 MBB. Intraoperative fluoroscopy provided for 18 seconds. Single digital spot images submitted for interpretation demonstrates posterior needle tip projecting over the expected left and right L4-S1 nerve roots. Correlate with intraoperative findings/report.
--- NOTE | 2023-11-24 15:35 | XRAY ---
18 seconds of fluoroscopy was used in surgery for a bilateral L4-S1 MBB.
== END 2023-11-24 14:21 | disposition home or self-care (01) ==
LOC: SDC-PAIN 12:00
PROVIDERS: ATTEND Psychiatry & Neurology Pain Medicine
DX: M47.816 Spondylosis without myelopathy or radiculopathy, lumbar region (principal)
CPT/HCPCS: 64493; 64494; 72020; 77002; J1010; J2704

== ENCOUNTER 2023-12-15 12:42 | Day surgery (SDC) | payer MEDICARE ==
[2013-03-09 13:47] VITALS: BP 108/68
[2023-12-15] MEDS ORDERED: LIDOCAINE HCL 1% 50 MG/5 ML VL PF IJ ONE (12:43)
[2023-12-15] MEDS ORDERED: Depo-Medrol 40 MG/ML IM ONE (12:43)
[2023-12-15] MEDS ORDERED: BUPIVACAINE 0.5% VIAL IJ ONE (12:43)
[2023-12-15] MEDS ORDERED: Lactated Ringers 1,000 ML IV ONE (15:00)
[2023-12-15] MEDS ORDERED: DIPRIVAN 200 MG/20 ML IV ONE (15:48)
--- NOTE | 2023-12-15 16:49 | XRAY ---
Indication: Right L4-S1 RFA. Intraoperative fluoroscopy provided for 22 seconds. For digital spot image submitted for interpretation demonstrates posterior needle tips projecting over the expected right L4-S1 nerve roots. Correlate with intraoperative findings/report.
--- NOTE | 2023-12-15 16:51 | XRAY ---
22 seconds of fluoroscopy was used in surgery for a right L4-S1 RFA.
== END 2023-12-15 16:25 | disposition home or self-care (01) ==
LOC: SDC-PAIN 12:42
PROVIDERS: ATTEND Psychiatry & Neurology Pain Medicine
DX: M47.816 Spondylosis without myelopathy or radiculopathy, lumbar region (principal)
CPT/HCPCS: 36410; 64635; 64636; 72100; 77002; J1010; J2001; J2704

== ENCOUNTER 2023-12-22 10:58 | Day surgery (SDC) | payer MEDICARE ==
[2013-03-09 13:47] VITALS: BP 108/68
[2023-12-22] MEDS ORDERED: LIDOCAINE HCL 1% 50 MG/5 ML VL PF IJ ONE (10:59)
[2023-12-22] MEDS ORDERED: Depo-Medrol 40 MG/ML IM ONE (10:59)
[2023-12-22] MEDS ORDERED: BUPIVACAINE 0.5% VIAL IJ ONE (10:59)
[2023-12-22] MEDS ORDERED: DIPRIVAN 200 MG/20 ML IV ONE ×2 (12:53→13:04)
[2023-12-22] MEDS ORDERED: Lactated Ringers 1,000 ML IV ONE (12:57)
--- NOTE | 2023-12-22 14:07 | XRAY ---
Indication: Left L4-S1 RFA. Intraoperative fluoroscopy provided for 25 seconds. 5 digital spot images submitted for interpretation demonstrates posterior needle tips projecting over the expected left L4-S1 nerve roots. Correlate with intraoperative findings/report.
--- NOTE | 2023-12-22 14:14 | XRAY ---
25 seconds of fluoroscopy was used in surgery for a left L4-S1 RFA.
== END 2023-12-22 13:28 | disposition home or self-care (01) ==
LOC: SDC-PAIN 10:58
PROVIDERS: ATTEND Psychiatry & Neurology Pain Medicine
DX: M47.816 Spondylosis without myelopathy or radiculopathy, lumbar region (principal)
CPT/HCPCS: 64635; 64636; 72100; 77002; J2001; J2704; Q9966

== ENCOUNTER 2024-01-02 21:05 | Emergency (ER) | payer MEDICARE ==
--- NOTE | 2024-01-02 21:09 | ERPHSYRPT ---
- History of Present Illness Time Seen by Provider: 01/02/24 21:09 Source: patient Exam Limitations: no limitations Physician History: She is a 63-year-old white female patient of Dr. Thomas who presents to the emergency department back pain. Patient has chronic back pain issues. Approximately 1 to 2 weeks ago patient underwent an injection of steroids into her lumbar region by her primary [facility] pain specialist Dr. Zurita. She has an appointment to see him tomorrow, 01/03/2024. Patient is allergic to NSAIDs. Patient is currently on Bypro 10/325. Patient denies chest pain. Patient denies shortness of breath. Patient did not suffer any acute fall or traumatic injury to this area. In the last week, she has had persistent aching of her back on the right side. Patient has a history of coronary disease, arrhythmias, anxiety, degenerative disc disease, osteoarthritis and back surgery. Patient has no urinary or bowel incontinence. Method of Injury: other Quality: aching (No injury) Back Pain Location: lumbar spine Severity of Pain-Max: moderate Severity of Pain-Current: moderate Modifying Factors: Improves With: movement Associated Symptoms: lower back pain, muscle spasms, No urinary incontinence, No loss of bowel control, No numbness in legs/feet Previous symptoms: same symptoms as today, recently seen, recently treated Allergies/Adverse Reactions: ibuprofen Allergy (Severe, Verified 01/02/24 21:13) hives NSAIDS (Non-Steroidal Anti-Inflamma Allergy (Intermediate, Verified 01/02/24 21:13) Difficulty Breathing acetaminophen [From Darvocet-N 100] Allergy (Mild, Verified 01/02/24 21:13) Hives meperidine HCl [From Demerol] Allergy (Mild, Verified 01/02/24 21:13) Itching morphine Allergy (Mild, Verified 01/02/24 21:13) Itching propoxyphene napsylate [From Darvocet-N 100] Allergy (Mild, Verified 01/02/24 21:13) Hives Sulfa (Sulfonamide Antibiotics) [Sulfa(Sulfonamide Antibiotics)] Adverse Reaction (Mild, Verified 01/02/24 21:13) Stomach Pain Home Medications: Hydrocodone/APAP 10/325 mg [Bypro 10/325 MG Tablet] 1 tab PO QID PRN PRN 04/02/15 [History] Venlafaxine HCl ER 75 mg [Effexor XR 75 MG] 150 mg PO QAM 07/22/23 [History] Hx Tetanus, Diphtheria Vaccination/Date Given: Yes (UP TO DATE) Hx Influenza Vaccination/Date Given: Yes Hx Pneumococcal Vaccination/Date Given: No Travel Risk - International Travel Have you traveled outside of the country in past 3 weeks: No - Emerging Infectious Disease Are you exhibiting symptoms associated with any current EIDs: No - Vaccine Status Hx Covid Vaccintation/Booster/Date Given: No - Review of Systems Constitutional: No Symptoms Eyes: No Symptoms Ears, Nose, & Throat: No Symptoms Respiratory: No Symptoms Cardiac: No Symptoms Abdominal/Gastrointestinal: No Symptoms Genitourinary Symptoms: No Symptoms Musculoskeletal: Back Pain Skin: No Symptoms Neurological: No Symptoms Psychological: No Symptoms Endocrine: No Symptoms Hematologic/Lymphatic: No Symptoms Immunological/Allergic: No Symptoms All Other Systems: Reviewed and Negative - Past Medical History Pertinent Past Medical History: Yes Neurological History: No Pertinent History ENT History: No Pertinent History Cardiac History: Arrhythmia, Myocardial Infarction (SD), Other Respiratory History: No Pertinent History Endocrine Medical History: Other Musculoskeletal History: Arthritis, Degenerative Disk Disease, Osteoarthritis, Other GI Medical History: No Pertinent History History: Other Psycho-Social History: Anxiety Female Reproductive Disorders: Abnormal Uterine Bleeding Other Medical History: HX OF KIDNEY STONES, PACEMAKER PLACEMENT 2016 - Past Surgical History Past Surgical History: Yes Neuro Surgical History: No Pertinent History Cardiac: No Pertinent History Respiratory: No Pertinent History Gastrointestinal: Appendectomy Genitourinary: No Pertinent History Musculoskeletal: Orthopedic Surgery Female Surgical History: Hysterectomy Other Surgical History: back surgery - vein removal-ureter stents placed - Social History Smoking Status: Former smoker How long have you smoked: 22 years Exposure to second hand smoke: No Drug Use: none Patient Lives Alone: No - Nursing Vital Signs Nursing Vital Signs: Initial Vital Signs Pulse Rate 88 01/02/24 21:13 Respiratory Rate 16 01/02/24 21:13 Blood Pressure 159/93 01/02/24 21:13 O2 Sat by Pulse Oximetry 95 01/02/24 21:13 Pain Scale Pain Intensity 8 - Physical Exam General Appearance: no apparent distress, alert, anxiety, obese Eye Exam: PERRL/EOMI, eyes nml inspection Ears, Nose, Throat Exam: normal ENT inspection, moist mucous membranes Neck Exam: normal inspection, non-tender, supple, full range of motion Respiratory Exam: normal breath sounds, lungs clear, airway intact, No chest tenderness, No respiratory distress Cardiovascular Exam: regular rate/rhythm, normal heart sounds, normal peripheral pulses Gastrointestinal Exam: soft, normal bowel sounds, No tenderness Pelvic Exam: not done Rectal Exam: not done Back Exam: normal inspection, normal range of motion, vertebral tenderness (Lumbar level), muscle spasm (Lumbar level), No CVA tenderness Extremity Exam: normal inspection, normal range of motion, pelvis stable Neurologic Exam: alert, oriented x 3, cooperative, security chief museum II-XII nml as tested, nml cerebellar function, nml station & gait, sensation nml Skin Exam: normal color, warm, dry Lymphatic Exam: No adenopathy SpO2 Interpretation: normal O2 Delivery: Room Air - Course Nursing assessment & vital signs reviewed: Yes Ordered Tests: Active Orders 24 hr Category Date Time Status LUMBAR SPINE W/O [CT] Stat Exams 01/02/24 21:44 Taken Medication Summary Discontinued Medications Generic Name Dose Route Start Last Admin Trade Name Zina PRN Reason Stop Dose Admin Methylprednisolone Sodium 0 mg 01/02/24 22:04 01/02/24 22:10 Succinate 125 mg/ Sterile IM 01/02/24 22:05 125 mg Water 2 ml STAT ONE Administration Methylprednisolone Sodium Succinate Confirm 01/02/24 22:09 Methylprednis Sod Succ 125 Mg/2 Ml Vial Administered 01/02/24 22:10 Dose 125 mg .ROUTE .STK-MED ONE Orphenadrine Citrate 60 mg 01/02/24 22:04 01/02/24 22:10 Orphenadrine Citrate 60 Mg/2 Ml Vial IM 01/02/24 22:05 60 mg STAT ONE Administration Orphenadrine Citrate Confirm 01/02/24 22:09 Orphenadrine Citrate 60 Mg/2 Ml Vial Administered 01/02/24 22:10 Dose 60 mg .ROUTE .STK-MED ONE Sterile Water Confirm 01/02/24 22:08 Water For Injection,Sterile 10 Ml Vial Administered 01/02/24 22:09 Dose 10 ml IJ .STK-MED ONE - Progress Progress: improved, pain not gone completely, re-examined Progress Note: 01/02/24 22:02 My medical decision making and the assignment of low complexity to this patient's medical issue today is based on review of the patient's past medical history, review of the patient's medication list, review of patient drug allergy list, history present illness and physical findings on examination. The workup today includes a lumbar spine CAT scan without contrast. We will also provide the patient with injection of Solu-Medrol and Norflex intramuscularly. Differential diagnosis includes but is not limited to lumbar spine fracture, acute exacerbation of chronic back pain 01/02/24 23:[address] scan of the lumbar spine results have not yet returned. However, the patient does not want to wait any longer for the results. She is aware that she will be signing out AGAINST MEDICAL ADVICE. Patient is awake she is alert she is oriented. She was advised to stay until the workup is complete. She was told that she could have a variety of emergency issues including but not limited to unstable fracture of spine, and acute, emergent compression of the spinal cord, as well as possible aortic aneurysm. Patient understands and desires to sign the AGAINST MEDICAL ADVICE form. Counseled pt/family regarding: diagnosis, need for follow-up, rad results Medical Desision Making - Diagnostic Testing Diagnostic test were ordered, analyzed, and reviewed by me: No - Risk of complications Low Risk: Low risk of morbidity from additional dx testing or treatment - Departure Departure Disposition: AMA Clinical Impression: Acute on chronic low back pain Condition: Stable Critical Care Time: No Referrals: HECTOR THOMAS DO [Primary Care Provider] - Follow up/PCP as directed Additional Instructions: Take your medications as prescribed. Call your primary care provider tomorrow, 01/03/2024 to make arrangements for follow-up appointment and to be seen in the next 3 to 5 days. Keep your appointment with your pain specialist tomorrow, 01/03/2024. Prescriptions: Prednisone 10 mg [Deltasone 10 mg] 10 mg PO TID #12 tablet Orphenadrine Citrate 100 mg [Norflex 100 MG Tablet] 100 mg PO BID #10 tab
[2024-01-02 21:23] VITALS: RESP 22; TEMP 98
[2024-01-02] MEDS ORDERED: Sterile H2O 10 ml IJ ONE (22:08)
[2024-01-02] MEDS ORDERED: Norflex 60 MG/2 ML ONE (22:09)
[2024-01-02] MEDS ORDERED: solu-MEDROL ONE (22:09)
[2024-01-02] MEDS: solu-MEDROL 125 MG, Sterile H2O 10 ml 2 ML IM ONE (22:10)
[2024-01-02] MEDS: Norflex 60 MG/2 ML IM ONE (22:10)
[2024-01-02 22:21] VITALS: O2SAT 97
[2024-01-02 23:50] VITALS: BP 121/89; PULSE 82
--- NOTE | 2024-01-02 23:58 | XRAY ---
CLINICAL HISTORY: Back pain COMPARISON: None TECHNIQUE: CT scan of lumbar spine done without contrast. Axial images obtained with reformatted coronal and sagittal images and submitted for interpretation. One of the following dose reduction techniques were utilized for this exam: Automated exposure control, adjustment of the mA and/or kV according to patient size, use of iterative reconstruction. FINDINGS: Vertebrae: Grade 1anterolisthesis of L5 over S1 noted. Diffuse osteopenic changes noted. Facetal arthropathy and osteophytes. Intervertebral Discs: Severe reduction of L3-L4 to L5-S1 intervertebral disc spaces with endplate irregularity and sclerosis. Moderate reduction of intervertebral disc spaces at other levels. Vacuum phenomeneon at all lumbar levels. Spinal Canal and Neural Foramina: Multilevel disc bulges resulting in effacement of the ventral thecal sac and neural, accentuated by facetal arthropathy. Facet Joints: Mdoerate to severe facet arthropathy. Soft Tissues: Normal appearance of the paraspinal soft tissues. No abnormal masses, fluid collections, or signs of inflammation. Incidental left renal calculi and vascular calcification. IMPRESSION: 1. 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 Recommended MRI evaluation if clinically warranted 2. Grade 1anterolisthesis of L5 over S1. Electronically Signed by: Estefani Stoddard MD. (01/02/2024 23:53:26 EDT)
== END 2024-01-02 23:57 | disposition left against medical advice (07) ==
LOC: ED 21:05
DX: G89.29 Other chronic pain (principal); M54.50 Low back pain, unspecified; Z79.891 Long term (current) use of opiate analgesic; Z79.52 Long term (current) use of systemic steroids; Z79.899 Other long term (current) drug therapy
CPT/HCPCS: 72131; 96372; 99283; J2360; J2919

== ENCOUNTER 2024-01-27 13:52 | Emergency (ER) | payer MEDICARE ==
[2024-01-27 14:09] VITALS: TEMP 97
--- NOTE | 2024-01-27 14:31 | ERPHSYRPT ---
- History of Present Illness Time Seen by Provider: 01/27/24 14:01 Source: patient Exam Limitations: no limitations (SSSSS) Patient Subjective Stated Complaint: pt here for swelling to lower legs since she got injections for pain a month ago, she aslo co some sob with movement Triage Nursing Assessment: pt alert, walked in,resp easy at rest, no cough, skin w/d/p. has swelling to lower legs, right leg with abrasion and steri strips in place, has old scaring to left lower leg. 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 Patient reports diffuse swelling all over especially from the knees down. Feeling tightening and pressure in the legs. Denies any fall or trauma. Does report getting short of breath with activity but no chest pain or palpitations. Patient reports symptoms started after she had her trigger point injections in her back. Denies any abdominal pain. Denies any numbness tingling weakness of lower extremities. No recent fever or chills reported. Denies any urinary complaints. Allergies/Adverse Reactions: ibuprofen Allergy (Severe, Verified 01/27/24 13:58) hives NSAIDS (Non-Steroidal Anti-Inflamma Allergy (Intermediate, Verified 01/27/24 13:58) Difficulty Breathing acetaminophen [From Darvocet-N 100] Allergy (Mild, Verified 01/27/24 13:58) Hives meperidine HCl [From Demerol] Allergy (Mild, Verified 01/27/24 13:58) Itching morphine Allergy (Mild, Verified 01/27/24 13:58) Itching propoxyphene napsylate [From Darvocet-N 100] Allergy (Mild, Verified 01/27/24 13:58) Hives Sulfa (Sulfonamide Antibiotics) [Sulfa(Sulfonamide Antibiotics)] Adverse Reaction (Mild, Verified 01/27/24 13:58) Stomach Pain Home Medications: Hydrocodone/APAP 10/325 mg [[place] 10/325 MG Tablet] 1 tab PO QID PRN PRN 04/02/15 [History] Venlafaxine HCl ER 75 mg [Effexor XR 75 MG] 75 mg PO QAM 07/22/23 [History] Hx Tetanus, Diphtheria Vaccination/Date Given: Yes (UP TO DATE) Hx Influenza Vaccination/Date Given: Yes Hx Pneumococcal Vaccination/Date Given: No Immunizations Up to Date: Yes Travel Risk - International Travel Have you traveled outside of the country in past 3 weeks: No - Emerging Infectious Disease Are you exhibiting symptoms associated with any current EIDs: No - Review of Systems Constitutional: No Symptoms Eyes: No Symptoms Ears, Nose, & Throat: No Symptoms Respiratory: Cough, Dyspnea Cardiac: Edema Abdominal/Gastrointestinal: No Symptoms Genitourinary Symptoms: No Symptoms Musculoskeletal: Arthralgias, Back Pain Skin: No Symptoms Neurological: No Symptoms Endocrine: No Symptoms Hematologic/Lymphatic: No Symptoms - Past Medical History Pertinent Past Medical History: Yes Neurological History: No Pertinent History ENT History: No Pertinent History Cardiac History: Arrhythmia, Myocardial Infarction ([place]), Other Respiratory History: No Pertinent History Endocrine Medical History: Other Musculoskeletal History: Arthritis, Degenerative Disk Disease, Osteoarthritis, Other GI Medical History: No Pertinent History History: Other Psycho-Social History: Anxiety Female Reproductive Disorders: Abnormal Uterine Bleeding Other Medical History: HX OF KIDNEY STONES, PACEMAKER PLACEMENT 2016 - Past Surgical History Past Surgical History: Yes Neuro Surgical History: No Pertinent History Cardiac: No Pertinent History Respiratory: No Pertinent History Gastrointestinal: Appendectomy Genitourinary: No Pertinent History Musculoskeletal: Orthopedic Surgery Female Surgical History: Hysterectomy Other Surgical History: back surgery - vein removal-ureter stents placed - Social History Smoking Status: Former smoker How long have you smoked: 22 years Exposure to second hand smoke: No Drug Use: none Patient Lives Alone: No - Social Determinants of Health Will the patient participate in the screening: Yes Do you worry about a steady place to live?: No Do you have any problems with any of the following?: No known problems In the past 12 months,have you had to go without utilities?: No Transportation Issues: No Has anyone in your support network made you feel unsafe?: No Have you or anyone in your house had to go without enough: No - Nursing Vital Signs Nursing Vital Signs: Initial Vital Signs Pulse Rate 81 01/27/24 14:06 Respiratory Rate 16 01/27/24 14:06 Blood Pressure 138/90 01/27/24 14:06 O2 Sat by Pulse Oximetry 98 01/27/24 14:06 Pain Scale Pain Intensity 4 - Physical Exam General Appearance: no apparent distress, alert Eye Exam: PERRL/EOMI Ears, Nose, Throat Exam: normal ENT inspection Neck Exam: normal inspection, non-tender, supple, full range of motion Respiratory Exam: normal breath sounds, lungs clear Cardiovascular Exam: regular rate/rhythm, normal heart sounds, edema (Nonpitting bilateral) Gastrointestinal/Abdomen Exam: soft, normal bowel sounds, No tenderness Back Exam: normal inspection, normal range of motion Extremity Exam: normal inspection, normal range of motion Neurologic Exam: alert, oriented x 3, cooperative Skin Exam: normal color SpO2 Interpretation: normal SpO2: 98 O2 Delivery: Room Air - Course EKG Interpreted by Me: RATE (82, AV sensed ventricular paced rhythm), Left [place] Deviation, Non-specific ST Changes Ordered Tests: Active Orders 24 hr Category Date Time Status CHEST 1 VIEW (PORTABLE) Stat Exams 01/27/24 14:27 Completed VENOUS BILATERAL EXTREMITY [US] Stat Exams 01/27/24 15:51 Completed BLOOD CULTURE Stat Lab 01/27/24 14:27 Received CBC W DIFF Stat Lab 01/27/24 14:37 Completed CMP Stat Lab 01/27/24 14:37 Completed Lactic Acid Stat Lab 01/27/24 14:37 Completed MAGNESIUM Stat Lab 01/27/24 14:37 Completed Manual Differential NC Stat Lab 01/27/24 14:37 Completed NT PRO BNPII Stat Lab 01/27/24 14:37 Completed TROPONIN Q4H Lab 01/27/24 14:37 Completed TROPONIN Q4H Lab 01/27/24 18:30 Ordered TROPONIN Q4H Lab 01/27/24 22:30 Ordered UA W/RFX UR CULTURE Stat Lab 01/27/24 16:32 Completed Medication Summary Discontinued Medications Generic Name Dose Route Start Last Admin Trade Name Freq PRN Reason Stop Dose Admin Hydrocodone Bitart/Acetaminophen 2 tab 01/27/24 15:10 01/27/24 15:18 Hydrocodone/Apap 5/325 1 Tab Tablet PO 01/27/24 15:11 2 tab STAT ONE Administration Hydrocodone Bitart/Acetaminophen Confirm 01/27/24 15:15 Hydrocodone/Apap 5/325 1 Tab Tablet Administered 01/27/24 15:16 Dose 2 tab .ROUTE .STK-MED ONE Lab/Rad Data: Laboratory Result Diagrams 01/27/24 14:37 01/27/24 14:37 Laboratory Results 01/27/24 01/27/24 01/27/24 Range/Units 16:32 14:37 14:37 WBC (3.98-10.04) x10^3/uL RBC (3.93-5.22) x10^6/uL Hgb (11.2-15.7) g/dL Hct (34.1-44.9) % MCV (79.4-94.8) fL MCH (25.6-32.2) pg MCHC (32.2-35.5) g/dL RDW (11.7-14.4) % Plt Count (182-369) x10^3/uL MPV (9.4-12.3) fL Segmented Neutrophils (1.56-6.13) % Lymphocytes (Manual) (24-44) % Monocytes (Manual) (0.0-12.0) % Eosinophils (Manual) (0.00-3.0) % Basophils (Manual) (0.0-1.0) % Atypical Lymphocytes % Platelet Estimate (NORMAL) RBC Morphology Macrocytosis Sodium 137 (135-145) mmol/L Potassium 3.8 (3.5-5.1) mmol/L Chloride 104 (98-107) mmol/L Carbon Dioxide 25 (22-30) mmol/L Anion Gap 13.0 (5-15) MEQ/L BUN 18 H (7-17) mg/dL Creatinine 0.75 (0.52-1.04) mg/dL Estimated GFR 87.8 ML/MIN Glucose 90 (74-106) mg/dL Lactic Acid (0.4-2.0) Calcium 8.8 (8.4-10.2) mg/dL Magnesium 1.9 (1.6-2.3) mg/dL Total Bilirubin 0.50 (0.2-1.3) mg/dL AST 85 H (14-36) U/L ALT 38 H (0-35) U/L Alkaline Phosphatase 94 (38-126) U/L Troponin I < 0.012 (0.000-0.033) ng/mL NT-Pro-B Natriuret Pep 92.3 (<300) pg/mL Serum Total Protein 7.7 (6.3-8.2) g/dL Albumin 3.8 (3.5-5.0) g/dL Urine Color Yellow (Yellow) Urine Appearance Clear (Clear) Urine pH 5.5 (4.6-8.0) Ur Specific [place] 1.020 (1.005-1.030) Urine Protein Negative (Negative) Urine Glucose (UA) Negative (Negative) mg/dL Urine Ketones Negative (Negative) Urine Blood Negative (Negative) Urine Nitrite Negative (Negative) Urine Bilirubin Negative (Negative) Urine Urobilinogen 0.2 (0.2) mg/dL Ur Leukocyte Esterase Negative (Negative) U Hyaline Cast (Auto) NONE SEEN (0-2) /LPF Urine Microscopic RBC 0-2 (0-5) /HPF Urine Microscopic WBC 0-2 (0-5) /HPF Ur Epithelial Cells None Seen (None Seen) /HPF Urine Bacteria None Seen (None Seen) /HPF Urine Culture Reflexed NO (NO) 01/27/24 01/27/24 Range/Units 14:37 14:37 WBC 5.6 (3.98-10.04) x10^3/uL RBC 3.42 L (3.93-5.22) x10^6/uL Hgb 11.7 (11.2-15.7) g/dL Hct 35.7 (34.1-44.9) % MCV 104.4 H (79.4-94.8) fL MCH 34.2 H (25.6-32.2) pg MCHC 32.8 (32.2-35.5) g/dL RDW 13.0 (11.7-14.4) % Plt Count 211 (182-369) x10^3/uL MPV 10.2 (9.4-12.3) fL Segmented Neutrophils 32 H (1.56-6.13) % Lymphocytes (Manual) 53 H (24-44) % Monocytes (Manual) 8 (0.0-12.0) % Eosinophils (Manual) 2 (0.00-3.0) % Basophils (Manual) 1 (0.0-1.0) % Atypical Lymphocytes 4 % Platelet Estimate NORMAL (NORMAL) RBC Morphology ABNORMAL Macrocytosis 1+ Sodium (135-145) mmol/L Potassium (3.5-5.1) mmol/L Chloride (98-107) mmol/L Carbon Dioxide (22-30) mmol/L Anion Gap (5-15) MEQ/L BUN (7-17) mg/dL Creatinine (0.52-1.04) mg/dL Estimated GFR ML/MIN Glucose (74-106) mg/dL Lactic Acid 1.2 (0.4-2.0) Calcium (8.4-10.2) mg/dL Magnesium (1.6-2.3) mg/dL Total Bilirubin (0.2-1.3) mg/dL AST (14-36) U/L ALT (0-35) U/L Alkaline Phosphatase (38-126) U/L Troponin I (0.000-0.033) ng/mL NT-Pro-B Natriuret Pep (<300) pg/mL Serum Total Protein (6.3-8.2) g/dL Albumin (3.5-5.0) g/dL Urine Color (Yellow) Urine Appearance (Clear) Urine pH (4.6-8.0) Ur Specific [place] (1.005-1.030) Urine Protein (Negative) Urine Glucose (UA) (Negative) mg/dL Urine Ketones (Negative) Urine Blood (Negative) Urine Nitrite (Negative) Urine Bilirubin (Negative) Urine Urobilinogen (0.2) mg/dL Ur Leukocyte Esterase (Negative) U Hyaline Cast (Auto) (0-2) /LPF Urine Microscopic RBC (0-5) /HPF Urine Microscopic WBC (0-5) /HPF Ur Epithelial Cells (None Seen) /HPF Urine Bacteria (None Seen) /HPF Urine Culture Reflexed (NO) - Progress Progress: improved, pain not gone completely Progress Note: 01/27/24 17:29 64 years old with history of third-degree AV block with pacemaker, chronic pain, COPD is evaluated for lower extremity pain and swelling with progressive worsening for the last few weeks. Patient has nonpitting edema. Lungs clear to auscultation. Chest x-ray negative. EKG is paced rhythm. Negative troponins and normal BNP. Normal white count, chemistries fairly unremarkable except for mildly elevated transaminases. Patient has normal lactate. No signs of cellulitis. I have obtained DVT scan both lower extremities which are negative as well. I do not know the exact cause of her swelling but have ruled out all the major emergencies. She does not have any abdominal pain for me just think as if patient is having some tumor sitting in the pelvis compressing on the vessels and also her edema is nonpitting. I have given a small dose of Lasix here and will continue with oral Lasix to go home for few days and recommended outpatient primary care follow-up. Also recommended elevation and compression stockings. Do not think patient needs any other workup and is being discharged with outpatient follow-up. Counseled pt/family regarding: lab results, diagnosis, need for follow-up, rad results, smoking cessation Medical Desision Making - Diagnostic Testing Diagnostic test were ordered, analyzed, and reviewed by me: Yes Radiological Interpretation: Reviewed by me - Risk of complications The pt has a mod risk of morbidity or mortality based on: Need for prescription drug management - Departure Departure Disposition: Home Clinical Impression: Swelling of both lower extremities Condition: Stable Critical Care Time: No Referrals: HECTOR THOMAS DO [Primary Care Provider] - Follow up with PCP 1 day Instructions: Swelling Additional Instructions: Take low-salt diet. Keep your legs elevated, use compression stocking. Use Lasix as recommended Follow-up with primary care for reevaluation. Return to ER for worsening swelling or if having redness, increased pain, fever chills etc. Prescriptions: Furosemide 20 mg [Lasix 20 mg] 20 mg PO BID #10 tablet
[2024-01-27 15:14] LABS: Hematocrit 35.7 % (34.1-44.9); Hemoglobin 11.7 g/dL (11.2-15.7); Mean Cell Volume 104.4 fL (79.4-94.8); Mean Corpuscular Hemoglobin 34.2 pg (25.6-32.2); Mean Corpuscular Hgb Concent. 32.8 g/dL (32.2-35.5); Mean Platelet Volume 10.2 fL (9.4-12.3); Platelet Count 211 x10^3/uL (182-369); Red Blood Count 3.42 x10^6/uL (3.93-5.22); White Blood Count 5.6 x10^3/uL (3.98-10.04)
[2024-01-27] MEDS ORDERED: NORCO 5/325 MG ONE (15:15)
[2024-01-27] MEDS: NORCO 5/325 MG PO ONE (15:18)
--- NOTE | 2024-01-27 15:18 | XRAY ---
Indication: Leg swelling. CHF. Comparison: None Portable chest demonstrates normal heart and lungs with incidental small left base calcified granuloma and left dual lead pacemaker. Bony thorax intact with osteopenia, mild degenerative changes, and left shoulder arthroplasty. Impression: Nonacute chest with chronic features.
[2024-01-27 15:34] LABS: ALBUMIN 3.8 g/dL (3.5-5.0); BILIRUBIN,TOTAL 0.5 mg/dL (0.2-1.3); Calcium 8.8 mg/dL (8.4-10.2); Creatinine 1 0.75 mg/dL (0.52-1.04); EST GLOMERULAR FILTRATION RATE 87.8 ML/MIN; MAGNESIUM 1.9 mg/dL (1.6-2.3); NT PRO BNPII 92.3 pg/mL (<300); Potassium 3.8 mmol/L (3.5-5.1); Total Protein 7.7 g/dL (6.3-8.2)
[2024-01-27 15:57] LABS: ATYPICAL LYMPHS 4 %; Basophil 1 % (0.0-1.0); Eosinophil 2 % (0.00-3.0); Lymphocytes 53 % (24-44); Monocyte 8 % (0.0-12.0); Neutrophils 32 % (1.56-6.13); Total Cells Counted 100
[2024-01-27 15:58] LABS: Platelet Estimate NORMAL (NORMAL)
[2024-01-27 15:59] LABS: Macrocytosis 1+
[2024-01-27 16:54] LABS: Appearance Clear (Clear); Bacteria None Seen /HPF (None Seen); Bilirubin Negative (Negative); Blood Negative (Negative); Epithelial Cells None Seen /HPF (None Seen); Glucose, Urine Negative (Negative); Hyaline Casts NONE SEEN /LPF (0-2); Ketones Negative (Negative); Leukocyte Esterase Negative (Negative); Nitrite Negative (Negative); Ph 5.5 (4.6-8.0); Protein,Urine Dip Negative (Negative); RBC 0-2 /HPF (0-5); Urobilinogen 0.2 mg/dL (0.2); WBC 0-2 /HPF (0-5)
--- NOTE | 2024-01-27 16:56 | XRAY ---
Indication: Bilateral leg swelling. Two-dimensional sonogram and color Doppler imaging major venous vessels left and right leg performed. Comparison: None No thrombus seen in the examined deep venous vessels left and right leg including greater saphenous vein. Veins demonstrate normal compressibility. Venous waveforms are normal with and without augmentation. Impression: Left and right leg negative for DVT.
[2024-01-27 17:02] LABS: ADD URINE CULTURE? NO (NO)
[2024-01-27 17:26] VITALS: BP 153/107; PULSE 83; RESP 14
[2024-01-27] MEDS ORDERED: Lasix 20 MG/2 ML ONE (17:32)
[2024-01-27] MEDS: Lasix 20 MG/2 ML IV STA (17:33)
[2024-01-27 17:35] VITALS: O2SAT 98
== END 2024-01-27 17:46 | disposition home or self-care (01) ==
LOC: ED 13:52
DX: M79.89 Other specified soft tissue disorders (principal); I10 Essential (primary) hypertension; Z79.899 Other long term (current) drug therapy
CPT/HCPCS: 36415; 71045; 80053; 81001; 83605; 83735; 83880; 84484; 85025; 87040; 93005; 93041; 93970; 94760; 96374; 99284; J1940; A9270-GY

== ENCOUNTER 2024-05-03 09:52 | Day surgery (SDC) | payer MEDICARE ==
[2024-05-03] MEDS ORDERED: Sodium Chloride 0.9(Preservative Free) 10 ML IJ ONE (09:53)
[2024-05-03] MEDS ORDERED: Decadron 4 MG INJ IV ONE (09:53)
[2024-05-03] MEDS ORDERED: DIPRIVAN 200 MG/20 ML IV ONE ×2 (12:06→12:18)
[2024-05-03] MEDS ORDERED: Xylocaine-Mpf 2% 5 Ml Vial ONE (12:08)
[2024-05-03] MEDS ORDERED: MORPHINE SULFATE 2 MG INJ ONE ×2 (12:36→12:48)
[2024-05-03] MEDS ORDERED: BENADRYL 50 MG/ML ONE (12:55)
[2024-05-03] MEDS ORDERED: Hydromorphone 1 mg/ml Injection ONE ×2 (13:05→13:49)
--- NOTE | 2024-05-03 14:20 | XRAY ---
Indication: Left L4-S1 transforaminal NOHEMI. Intraoperative fluoroscopy provided for 52 seconds. 5 digital spot image submitted for interpretation demonstrates posterior needle tips projecting over the expected left L4 and L5 nerve roots. Small amount of contrast injected for needle tip placement. Correlate with intraoperative findings/report.
--- NOTE | 2024-05-03 14:22 | XRAY ---
52 seconds of fluoroscopy was used in surgery for a left L4-S1 transforaminal NOHEMI.
[2024-05-03] MEDS: Hydromorphone 1 mg/ml Injection IV PRN (16:01)
[2024-05-03] MEDS ORDERED: TIRZEPATIDE 2.5 MG/0.5 ML SQ SCH (17:30)
[2024-05-03] MEDS ORDERED: LASIX 20 MG PO PRN (17:30)
[2024-05-03] MEDS ORDERED: NON-FORMULARY ITEM (Naloxone Hcl [Narcan] 4 MG Spray) IH SCH (17:30)
[2024-05-03] MEDS: NORCO 10-325 MG PO PRN (18:02)
[2024-05-03] MEDS: Wellbutrin XL 150 MG PO SCH (18:02)
[2024-05-03] MEDS: Zocor 10MG PO SCH (21:12)
[2024-05-04 03:52] VITALS: RESP 20
[2024-05-04 07:46] VITALS: BP 100/57; PULSE 79; TEMP 98.2; O2SAT 95
== END 2024-05-04 08:10 | disposition home or self-care (01) ==
LOC: SDC-PAIN 09:52 → MED SURG 14:21 → SDC-PAIN 05-04 08:10
PROVIDERS: ATTEND Psychiatry & Neurology Pain Medicine
DX: M54.16 Radiculopathy, lumbar region (principal); E11.9 Type 2 diabetes mellitus without complications
CPT/HCPCS: 64483; 64484; 72100; 77003; 82947; 94762; J1100; J1171; J1200; J2270; J2704; Q9966; A9270-GY

== ENCOUNTER 2024-09-20 09:49 | Day surgery (SDC) | payer MEDICARE ==
[2013-03-09 13:47] VITALS: BP 108/68
[2024-09-20] MEDS ORDERED: Depo-Medrol 40 MG/ML IM ONE (09:50)
[2024-09-20] MEDS ORDERED: BUPIVACAINE 0.5% VIAL IJ ONE (09:50)
[2024-09-20] MEDS ORDERED: LIDOCAINE HCL 1% AMPUL 5 ML IJ ONE (09:50)
[2024-09-20] MEDS ORDERED: Lactated Ringers 500 ML IV ONE (09:52)
[2024-09-20] MEDS ORDERED: D50W 50 ml Abboject IV ONE (10:15)
[2024-09-20] MEDS ORDERED: propofoL IV ONE (10:52)
--- NOTE | 2024-09-20 11:59 | XRAY ---
Indication: Right L4-S1 RFA. Intraoperative fluoroscopy provided for 27 seconds. 2 digital spot image submitted for interpretation demonstrates posterior needle tips projecting over expected right L4-S1 nerve roots. Correlate with intraoperative findings/report.
--- NOTE | 2024-09-20 12:58 | XRAY ---
27 seconds of fluoroscopy was used in surgery for a right L4-S1 RFA.
== END 2024-09-20 11:45 | disposition home or self-care (01) ==
LOC: SDC-PAIN 09:49
PROVIDERS: ATTEND Psychiatry & Neurology Pain Medicine
DX: M47.816 Spondylosis without myelopathy or radiculopathy, lumbar region (principal); E11.9 Type 2 diabetes mellitus without complications
CPT/HCPCS: 64635; 64636; 72100; 82947; J2704

== ENCOUNTER 2024-09-27 09:58 | Day surgery (SDC) | payer MEDICARE ==
[2013-03-09 13:47] VITALS: BP 108/68
[2024-09-27] MEDS ORDERED: BUPIVACAINE 0.5% VIAL IJ ONE (09:59)
[2024-09-27] MEDS ORDERED: Depo-Medrol 40 MG/ML IM ONE (09:59)
[2024-09-27] MEDS ORDERED: LIDOCAINE HCL 1% AMPUL 5 ML IJ ONE (09:59)
[2024-09-27] MEDS ORDERED: Lactated Ringers 500 ML IV ONE (11:19)
[2024-09-27] MEDS ORDERED: D50W 50 ml Abboject IV ONE (11:22)
[2024-09-27] MEDS ORDERED: propofoL IV ONE (12:41)
--- NOTE | 2024-09-27 13:51 | XRAY ---
Indication: Left L4-S1 RFA. Intraoperative fluoroscopy provided for 24 seconds. 4 digital spot images submitted for interpretation demonstrates posterior needle tips projecting over expected left L4-S1 nerve roots. Correlate with intraoperative findings/report.
--- NOTE | 2024-09-27 13:54 | XRAY ---
24 seconds of fluoroscopy used in surgery for a left L4-S1 RFA.
== END 2024-09-27 14:16 | disposition home or self-care (01) ==
LOC: SDC-PAIN 09:58
PROVIDERS: ATTEND Psychiatry & Neurology Pain Medicine
DX: M47.817 Spondylosis without myelopathy or radiculopathy, lumbosacral region (principal); E11.9 Type 2 diabetes mellitus without complications
CPT/HCPCS: 64635; 64636; 72100; 82947; J2704

== ENCOUNTER 2025-03-21 07:47 | Day surgery (SDC) | payer MEDICARE ==
[2013-03-09 13:47] VITALS: BP 108/68
[2025-03-21] MEDS ORDERED: LIDOCAINE HCL 1% 50 MG/5 ML VL IJ ONE (07:48)
[2025-03-21] MEDS ORDERED: D50W 50 ml Abboject IV ONE (08:55)
[2025-03-21] MEDS ORDERED: propofoL IV ONE (09:52)
[2025-03-21] MEDS ORDERED: Lactated Ringers 1,000 ML IV ONE (09:56)
--- NOTE | 2025-03-21 13:05 | XRAY ---
Indication: Left piriformis injection. Intraoperative fluoroscopy provided for 10 seconds. Single digital spot image submitted for interpretation demonstrates posterior needle tip projecting over left piriformis. Small amount of contrast injected for needle tip placement. Correlate with intraoperative findings/report.
--- NOTE | 2025-03-21 13:07 | XRAY ---
10 seconds of fluoroscopy were used in surgery for a left piriformis muscle injection.
== END 2025-03-21 10:55 | disposition home or self-care (01) ==
LOC: SDC-PAIN 07:47
PROVIDERS: ATTEND Psychiatry & Neurology Pain Medicine
DX: M79.18 Myalgia, other site (principal); E11.9 Type 2 diabetes mellitus without complications

== ENCOUNTER 2025-04-25 07:47 | Day surgery (SDC) | payer MEDICARE ==
[2013-03-09 13:47] VITALS: BP 108/68
[2025-04-25] MEDS ORDERED: BUPIVACAINE 0.5% VIAL IJ ONE (07:48)
[2025-04-25] MEDS ORDERED: methylPREDNISolone acetate IM ONE (07:48)
[2025-04-25] MEDS ORDERED: propofoL IV ONE (09:23)
[2025-04-25] MEDS ORDERED: Xylocaine-Mpf 2% 5 Ml Vial ONE (09:23)
[2025-04-25] MEDS ORDERED: DILAUDID 0.5 MG/0.5 ML SYRINGE ONE (09:50)
[2025-04-25] MEDS ORDERED: Lactated Ringers 1,000 ML IV ONE (11:05)
--- NOTE | 2025-04-25 11:13 | XRAY ---
Indication: Left ischial bursa injection Intraoperative fluoroscopy provided for 28 seconds. 2 digital spot images submitted for interpretation demonstrates posterior needle tip projecting over left inferior ischial tuberosity. Small amount of contrast injected for needle tip placement. Correlate with intraoperative findings/report.
--- NOTE | 2025-04-25 13:09 | XRAY ---
28 seconds of fluoroscopy was used in surgery for a left ischial bursa injection.
== END 2025-04-25 10:12 | disposition home or self-care (01) ==
LOC: SDC-PAIN 07:47
PROVIDERS: ATTEND Psychiatry & Neurology Pain Medicine
DX: M70.62 Trochanteric bursitis, left hip (principal); E11.9 Type 2 diabetes mellitus without complications